=== PATIENT | female | born 1965 | race Caucasian/White ===

== ENCOUNTER 2020-04-02 16:02 | Emergency (ER) | payer MEDICAID, SELFPAY ==
[2020-04-02 17:22] LABS: #Basophils 0.1 thou/uL (0.0-0.2); #Lymphocytes 1.3 thou/uL (1.20-3.40); #Monocytes 0.3 thou/uL (0.11-0.59); #Neutrophils 6.3 thou/uL (1.40-6.50); %Lymphocytes 16.4 % (21.0-51.0); %Monocytes 3.7 % (0.0-10.0); %Neutrophils 78.9 % (42.0-75.0); Hemoglobin 15.1 g/dL (12.0-16.0); Mean Corpuscular HGB CONC 31.6 g/dL (32.0-36.0); Mean Corpuscular Hemoglobin 28.2 pg (27.0-31.0); Mean Corpuscular Volume 89.1 fL (78.0-98.0); Mean Platelet Volume 6.3 fL (7.4-10.4); Platelet Count 270 thou/uL (130-400); RBC Distribution Width 12.1 % (11.5-14.5); Red Blood Cell (RBC) Count 5.35 mill/uL (4.20-5.40)
[2020-04-02 17:41] LABS: ALT (SGPT) 8 U/L (8-55); AST (SGOT) 15 U/L (5-34); Albumin 4.2 g/dL (3.5-5.0); Alkaline Phosphatase 74 U/L (40-110); Anion Gap 13 mmol/L (10-20); BUN (Urea Nitrogen) 10 mg/dL (9.8-20.1); Bilirubin, Total 0.5 mg/dL (0.2-1.2); Calc. Creatinine Clearance 0 mL/min (70-130); Calcium 9.7 mg/dL (7.8-10.44); Carbon Dioxide 27 mmol/L (22-29); Chloride 106 mmol/L (98-107); Estimated GFR-MDRD 82; Globulin 3.2 g/dL (2.4-3.5); Glucose 102 mg/dL (70-105); Potassium 4.2 mmol/L (3.5-5.1); Protein, Total 7.4 g/dL (6.0-8.3); Sodium 142 mmol/L (136-145)
[2020-04-02 18:18] LABS: Bilirubin Negative (Negative); Blood, Urine Negative (Negative); Clarity Clear (Clear); Glucose, Urine (Dipstick) Negative (Negative); Ketone, Urine Negative (Negative); Leukocyte Large (Negative); Nitrite Negative (Negative); Protein, Urine (Dipstick) Negative (Neg-Trace); Specific Gravity, Urine 1.015 (1.005-1.030); Urobilinogen 0.2 mg/dL (Less than 2); pH, Urine 7.5 (5.0-9.0)
[2020-04-02 18:20] LABS: Bacteria/HPF Rare-Few HPF (None Seen); RBC/HPF 0-3 HPF (0-3)
== END 2020-04-02 18:10 | disposition home or self-care (01) ==
LOC: NAV ERS 16:02
DX: K52.9 Noninfective gastroenteritis and colitis, unspecified (principal); E86.9 Volume depletion, unspecified; E03.9 Hypothyroidism, unspecified; I10 Essential (primary) hypertension; F17.210 Nicotine dependence, cigarettes, uncomplicated; Z79.899 Other long term (current) drug therapy
CPT/HCPCS: 80053; 81003; 81015; 85025; 93005; 94760; 96360